=== PATIENT | female | born 1980 | race Caucasian/White ===

== ENCOUNTER 2017-10-15 07:44 | Outpatient (CLI) | payer BC ==
[2017-10-15 08:35] LABS: ALBUMIN 3.7 g/dL (3.4-5.0); BILIRUBIN,TOTAL 0.3 mg/dL (0.2-1.0); CALCIUM, SERUM 8.5 mg/dL (8.5-10.1); CREATININE 0.6 mg/dL (0.6-1.3); POTASSIUM 3.7 mmol/L (3.5-5.1); TOTAL PROTEIN, SERUM 7.6 g/dL (6.4-8.2)
[2017-10-15 08:37] LABS: BASOPHILS % (AUTO) 0.3 % (0.0-2.0); EOSINOPHILS % (AUTO) 1.1 % (0.0-6.0); HEMATOCRIT 40 % (33-45); HEMOGLOBIN 13.2 g/dL (11.5-14.8); LYMPHOCYTES % (AUTO) 29.6 % (20.0-44.0); MEAN CORPUSCULAR HEMOGLOBIN 31 PG (26.0-33.0); MEAN CORPUSCULAR HGB CONC 33 g/dl (31.0-36.0); MEAN CORPUSCULAR VOLUME 94 fL (82-100); MONOCYTES # (AUTO) 0.4 /CMM (0.1-1.30); MONOCYTES % (AUTO) 6.3 % (2.0-12.0); NEUTROPHILS # (AUTO) 4.3 /CMM (1.8-8.9); NEUTROPHILS % (AUTO) 62.7 % (43.0-81.0); PLATELET COUNT (AUTO) 508 /CMM (150-450); RDW COEFFICIENT OF VARIATION 12.9 (11.5-15.0); RED BLOOD CELL COUNT(AUTO) 4.27 MIL/uL (4.0-5.2); WHITE BLOOD COUNT (AUTO) 6.9 K/uL (4.3-11.0)
== END 2017-10-15 23:59 | disposition home or self-care (01) ==
LOC: LAB 07:44
PROVIDERS: ATTEND Family Medicine
DX: D64.9 Anemia, unspecified (principal); E55.9 Vitamin D deficiency, unspecified; Z68.31 Body mass index [BMI] 31.0-31.9, adult
CPT/HCPCS: 36415; 80053-TC; 80061-TC; 82306; 82728-TC; 82746; 83540-TC; 85025-TC

== ENCOUNTER 2017-10-19 08:38 | Outpatient (CLI) | payer BC | END 2017-10-19 23:59 | disposition home or self-care (01) | LOC: LAB 08:38 | PROVIDERS: ATTEND Family Medicine | DX: Z11.3 Encounter for screening for infections with a predominantly sexual mode of transmission (principal) | CPT/HCPCS: 86592; 86706; 86803; 87491; 87591 ==

== ENCOUNTER 2017-11-11 11:21 | Emergency (ER) | payer BC, OTHER ==
[~2017-11-11] VITALS: Ht 154.9 cm; Wt 73.0 kg
[2017-11-11 11:21] VITALS: BP 133/89
[2017-11-11] MEDS ORDERED: IBUPROFEN 600 MG TABLET PO ONE ×2 (12:00→12:08)
--- NOTE | 2017-11-11 12:16 | NUR ---
GROUP A STREP SENT TO LAB
[2017-11-11 12:41] LABS: MONOTEST NEGATIVE (NEGATIVE)
== END 2017-11-11 13:08 | disposition home or self-care (01) ==
LOC: ER 11:27
DX: J02.9 Acute pharyngitis, unspecified (principal); J45.909 Unspecified asthma, uncomplicated; D64.9 Anemia, unspecified
CPT/HCPCS: 36415; 86308; 87070; 87880; 99284; A4606; Z7610; 86403-TC

== ENCOUNTER 2017-12-02 08:32 | Outpatient (CLI) | payer BC | END 2017-12-02 23:59 | disposition home or self-care (01) | LOC: LAB 08:32 | PROVIDERS: ATTEND Family Medicine | DX: Z12.4 Encounter for screening for malignant neoplasm of cervix (principal); Z11.3 Encounter for screening for infections with a predominantly sexual mode of transmission; Z11.59 Encounter for screening for other viral diseases; J45.909 Unspecified asthma, uncomplicated | CPT/HCPCS: 36415; 86709-TC; 87491; 87591; 88142 ==

== ENCOUNTER 2017-12-22 09:01 | Outpatient (CLI) | payer BC | END 2017-12-22 23:59 | disposition home or self-care (01) | LOC: US 09:01 | PROVIDERS: ATTEND Family Medicine | DX: N85.2 Hypertrophy of uterus (principal); J44.9 Chronic obstructive pulmonary disease, unspecified | CPT/HCPCS: 76856-TC ==

== ENCOUNTER 2018-04-09 09:25 | Emergency (ER) | payer BC, OTHER ==
[~2018-04-09] VITALS: Ht 152.4 cm; Wt 77.1 kg
[2018-04-09] MEDS ORDERED: ONDANSETRON HCL/PF 4 MG/2 ML VIAL ONE (09:49)
[2018-04-09 09:54] LABS: BASOPHILS # (AUTO) 0.1 /CMM (0.0-0.2); BASOPHILS % (AUTO) 0.9 % (0.0-2.0); EOSINOPHILS % (AUTO) 1.3 % (0.0-6.0); HEMATOCRIT 31 % (33-45); HEMOGLOBIN 9.4 g/dL (11.5-14.8); LYMPHOCYTES # (AUTO) 2.5 /CMM (0.8-4.8); LYMPHOCYTES % (AUTO) 27.7 % (20.0-44.0); MEAN CORPUSCULAR HGB CONC 30 g/dl (31.0-36.0); MEAN CORPUSCULAR VOLUME 68 fL (82-100); MONOCYTES # (AUTO) 0.5 /CMM (0.1-1.30); MONOCYTES % (AUTO) 5.7 % (2.0-12.0); NEUTROPHILS # (AUTO) 5.8 /CMM (1.8-8.9); NEUTROPHILS % (AUTO) 64.4 % (43.0-81.0); PLATELET COUNT (AUTO) 794 /CMM (150-450); RED BLOOD CELL COUNT(AUTO) 4.59 MIL/uL (4.0-5.2); WHITE BLOOD COUNT (AUTO) 9.1 K/uL (4.3-11.0)
--- NOTE | 2018-04-09 09:57 | NUR ---
patient presented in the ER with c/o epigastric pain and nausea vomiting since yesterday. On room air, breathing evenly and unlabored. connected to the monitor and pulse ox. kept comfortable. will continue to monitor accordingly.
[2018-04-09] MEDS ORDERED: IV NS 0.9% 500 ML BAG IV ONE (10:00)
[2018-04-09] MEDS ORDERED: ONDANSETRON HCL/PF 4 MG/2 ML VIAL IVP ONE (10:00)
[2018-04-09 10:01] LABS: CALCIUM, SERUM 9.1 mg/dL (8.5-10.1); CREATININE 0.5 mg/dL (0.6-1.3); POTASSIUM 3.6 mmol/L (3.5-5.1)
[2018-04-09 10:41] LABS: LYMPHOCYTES % (MANUAL) 28 % (16-48); MONOCYTES % (MANUAL) 4 % (0-11.0); NEUTROPHILS % (MANUAL) 68 (42-76)
[2018-04-09 11:31] VITALS: BP 125/84
--- NOTE | 2018-04-09 11:31 | NUR ---
Patient discharged to home in stable condition. Written and verbal after care instructions given. Patient verbalizes understanding of instruction.IV removed. Catheter intact and site benign. Pressure and 4x4 applied to site. No bleeding noted.
== END 2018-04-09 11:32 | disposition home or self-care (01) ==
LOC: ER 09:28
DX: K52.9 Noninfective gastroenteritis and colitis, unspecified (principal); D64.9 Anemia, unspecified; J45.909 Unspecified asthma, uncomplicated
CPT/HCPCS: 36415; 80048; 85025; 96374; 99283; A4606; J2405; J7040

== ENCOUNTER 2021-05-09 10:07 | Outpatient (CLI) | payer BC ==
[2021-05-09 12:07] LABS: BASOPHILS % (AUTO) 0.5 % (0.0-2.0); EOSINOPHILS % (AUTO) 1.1 % (0.0-6.0); HEMATOCRIT 35 % (33-45); HEMOGLOBIN 11.1 g/dL (11.5-14.8); LYMPHOCYTES # (AUTO) 2.3 K/uL (0.8-4.8); LYMPHOCYTES % (AUTO) 36.8 % (20.0-44.0); MEAN CORPUSCULAR HGB CONC 31 g/dl (31.0-36.0); MEAN CORPUSCULAR VOLUME 79 fL (82-100); MONOCYTES # (AUTO) 0.4 K/uL (0.1-1.30); MONOCYTES % (AUTO) 6.4 % (2.0-12.0); NEUTROPHILS # (AUTO) 3.4 K/uL (1.8-8.9); NEUTROPHILS % (AUTO) 55.2 % (43.0-81.0); PLATELET COUNT (AUTO) 452 K/uL (150-450); RED BLOOD CELL COUNT(AUTO) 4.49 MIL/uL (4.0-5.2); WHITE BLOOD COUNT (AUTO) 6.2 K/uL (4.3-11.0)
== END 2021-05-09 23:59 | disposition home or self-care (01) ==
LOC: LAB 10:07
PROVIDERS: ATTEND Family Medicine
DX: J44.9 Chronic obstructive pulmonary disease, unspecified (principal); Z98.84 Bariatric surgery status
CPT/HCPCS: 36415; 82728-TC; 85025-TC

== ENCOUNTER 2022-08-10 01:52 | Emergency (ER) | payer BC, OTHER ==
[~2022-08-10] VITALS: Ht 152.4 cm; Wt 46.7 kg
--- NOTE | 2022-08-10 02:24 | NUR ---
FISTULA AND DISCHARGES ON RIGHT BREAST. UNDERGONE BREAST IMPLANT 06/28/22 AT [facility]. PATIENT IS AOX4. ABLE TO MAKE NEEDS KNOWN. PLACED COMFORTABLY IN BED.
[2022-08-10] MEDS ORDERED: CEPH500C2 PO (03:04)
[2022-08-10 03:19] VITALS: BP 110/69
--- NOTE | 2022-08-10 03:19 | NUR ---
Patient discharged to home in stable condition. Written and verbal after care instructions given. Patient verbalizes understanding of instruction.
== END 2022-08-10 03:20 | disposition home or self-care (01) ==
LOC: ER 01:57
DX: T81.30XA Disruption of wound, unspecified, initial encounter (principal); J45.909 Unspecified asthma, uncomplicated; Z98.890 Other specified postprocedural states; Z79.899 Other long term (current) drug therapy